=== PATIENT | male | born 2000 | race Caucasian/White ===

== ENCOUNTER 2018-10-14 18:14 | Inpatient (IN) | payer MEDICAID ==
[~2018-10-14] VITALS: Ht 175.3 cm; Wt 75.7 kg
[2018-10-15] MEDS ORDERED: MORPHINE SULFATE 4 MG/ML CPJ (NOT FOR IM USE) IV STA (03:02)
[2018-10-15] MEDS ORDERED: SODIUM CHLORIDE 0.9% 1,000 ML IV ONE (03:02)
[2018-10-15] MEDS ORDERED: ONDANSETRON HCL 4MG/2ML INJ IV STA (03:02)
[2018-10-15 03:47] LABS: BASOPHILS % 0.3 % (0.0-2.0); EOSINOPHILS % 0.5 % (0.0-5.0); HEMATOCRIT. 43.8 % (42.0-52.0); HEMOGLOBIN. 13.8 g/dL (14.0-18.0); LYMPHOCYTES % 24.7 % (20.0-50.0); MEAN CORPUSCULAR HEMOGLOBIN 23.4 pg (28.0-32.0); MEAN CORPUSCULAR VOLUME 74.1 fL (80.0-94.0); MEAN PLATELET VOLUME 7.7 fl (7.4-10.4); NEUTROPHILS % 65.5 % (40.0-76.0); PLATELET 252 x1000/uL (130-400); RED CELL DISTRIBUTION WIDTH 15.4 % (11.6-14.6)
[2018-10-15 03:48] LABS: CHLORIDE 105 mEq/L (98-107)
[2018-10-15] MEDS ORDERED: CEFTRIAXONE 1 G PREMIX 50 ML IV ONE (06:00)
[2018-10-15] MEDS ORDERED: PIPERACILLIN/TAZOBACTAM 3.375GM/50ML PREMIX IV ONE (06:00)
[2018-10-15] MEDS ORDERED: PIPERACILLIN/TAZ 3.375G PREMIX 50 ML IV ONE (06:00)
[2018-10-15] MEDS ORDERED: METRONIDAZOLE 500 MG PREMIX 100 ML IV ONE (06:00)
[2018-10-15] MEDS ORDERED: BUPIVACAINE HCL 0.5% (5MG/ML) 50ML ONE (07:05)
[2018-10-15] MEDS ORDERED: SKIN ADHESIVE 0.7 GM EA TOP ONE (07:06)
[2018-10-15] MEDS ORDERED: FENTANYL CITRATE/PF 50MCG/ML 2ML VIAL ONE ×2 (07:20→08:18)
[2018-10-15] MEDS ORDERED: MIDAZOLAM HCL 2 MG/2 ML VIAL ONE (07:21)
[2018-10-15] MEDS ORDERED: PHENYLEPHRINE HCL 10 MG/ML 1ML (IV VIAL) IV ONE ×2 (07:21→08:07)
[2018-10-15] MEDS ORDERED: GLYCOPYRROLATE 0.2 MG/ML 2ML VIAL ONE (07:21)
[2018-10-15] MEDS ORDERED: ROCURONIUM BROMIDE 10MG/ML VIAL 5ML IV ONE (07:21)
[2018-10-15] MEDS ORDERED: PROPOFOL 200MG/20ML VIAL IV ONE (07:21)
[2018-10-15] MEDS ORDERED: NEOSTIGMINE METHYLSULFATE 1MG/ML 10 ML VIAL ONE (07:22)
[2018-10-15] MEDS ORDERED: IOHEXOL-300 100 ML BOTTLE ONE (07:25)
[2018-10-15] MEDS ORDERED: ONDANSETRON HCL 4MG/2ML INJ ONE (07:25)
[2018-10-15] MEDS ORDERED: MEPERIDINE HCL/PF 25MG/ML CPJ IV PRN ×2 (09:00→10:45)
[2018-10-15] MEDS ORDERED: HYDROMORPHONE HCL/PF 2MG/ML CPJ IV PRN ×2 (09:00→10:00)
[2018-10-15] MEDS ORDERED: HYDROCODONE/ACETAMINOPHEN 5/325MG TABLET PO PRN ×2 (10:00)
[2018-10-15] MEDS ORDERED: ONDANSETRON HCL 4MG/2ML INJ IV PRN (10:00)
[2018-10-15 12:00] VITALS: BP 105/50
[2018-10-15 12:01] VITALS: BP 94/52
[2018-10-15] MEDS ORDERED: DEXT 5%/0.45% NACL KCL 20MEQ/L 1,000 ML IV ONE (13:00)
[2018-10-15 16:00] VITALS: BP 116/52
[2018-10-15 18:46] VITALS: BP 118/52
== END 2018-10-15 20:15 | disposition home or self-care (01) | DRG 234 ==
LOC: ER 18:14 → 6EST 10-15 06:06 → ENRESERV 10-15 07:58
PROVIDERS: ADMIT Internal Medicine; ATTEND Internal Medicine
PROC: 0DTJ4ZZ Resection of Appendix, Percutaneous Endoscopic Approach (ICD-10-PCS; principal; 2018-10-15)
DX: K35.80 Unspecified acute appendicitis (principal)
CPT/HCPCS: 36415; 74177; 88304; 96361; 96365; 96368; 96375; 99285; J0696; J2175; J2250; J2270; J2370; J2405; J2704; J2710; J3010; J3490; J7030; Q9967

== ENCOUNTER 2022-09-01 08:32 | Emergency (ER) | payer MEDICAID ==
[~2022-09-01] VITALS: Ht 182.9 cm; Wt 82.0 kg
[2022-09-01] MEDS ORDERED: SODIUM CHLORIDE 0.9% 1,000 ML IV ONE (12:15)
[2022-09-01 13:41] VITALS: BP 119/74
== END 2022-09-01 13:44 | disposition home or self-care (01) ==
LOC: ER 08:50
DX: T40.991A Poisoning by other psychodysleptics [hallucinogens], accidental (unintentional), initial encounter (principal); F19.19 Other psychoactive substance abuse with unspecified psychoactive substance-induced disorder; R41.82 Altered mental status, unspecified; R03.0 Elevated blood-pressure reading, without diagnosis of hypertension; Y92.59 Other trade areas as the place of occurrence of the external cause
CPT/HCPCS: 99283; J7030